=== PATIENT | male | born 1980 | race Caucasian/White ===

== ENCOUNTER 2016-08-19 14:54 | Emergency (ER) | payer OTHER ==
[~2016-08-19] VITALS: Ht 177.8 cm; Wt 117.9 kg
[~2016-08-19 14:54] MED LIST: AMLODIPINE BESY10 MG PO; ASPIRIN325 PO; BACTRIM DS TAB1 EACH PO; HUMULINR100; INVOKANA300 MG PO; KEFLEX500 MG PO; LISINOPRIL40 MG PO; NORCO 5-325 TA1 EACH PO; NOVOLIN R100 UNIT/3 SC; PRAVACHOL40 MG PO; PROTONIX40 M2 PO
[2016-08-19] MEDS ORDERED: CARVEDILOL12.5 MG PO (15:08)
[2016-08-19 16:00] VITALS: BP 170/94
[2016-08-19 16:18] LABS: ABSOLUTE NEUTROPHILS 7.5 thou/uL (1.4-8.2); BASOPHILS 0.8 % (0.0-2.0); EOSINOPHILS 1.6 % (0.0-3.0); HEMATOCRIT 37.1 % (42.0-52.0); HEMOGLOBIN 12.8 gm/dL (14.0-18.0); LYMPHOCYTES 13.4 % (24.0-44.0); MCH 28.2 pg (26.0-34.0); MCHC 34.6 g/dL (28.0-37.0); MCV 81.5 fL (80.0-100.0); MONOCYTES 7.2 % (1.0-8.0); PLATELET COUNT 221 thou/uL (150-400); RBC 4.55 mil/uL (4.50-6.00); RDW 14.8 % (10.5-14.5); WBC 9.7 thou/uL (4.0-11.0)
[2016-08-19 16:19] LABS: MANUAL DIFF NO
[2016-08-19] MEDS ORDERED: CLEOCIN HCL300 MG PO (16:50)
== END 2016-08-19 16:54 | disposition home or self-care (01) ==
LOC: ER 14:54
PROVIDERS: Nurse Practitioner
DX: L02.415 Cutaneous abscess of right lower limb (principal); E11.9 Type 2 diabetes mellitus without complications; I10 Essential (primary) hypertension

== ENCOUNTER 2017-02-18 10:18 | Emergency (ER) | payer OTHER ==
[~2017-02-18] VITALS: Ht 177.8 cm; Wt 117.9 kg
[~2017-02-18 10:18] MED LIST changes: +CARVEDILOL12.5 MG PO; +CLEOCIN HCL300 MG PO
[2017-02-18 10:51] LABS: ABSOLUTE NEUTROPHILS 7.1 thou/uL (1.4-8.2); BASOPHILS 0.9 % (0.0-2.0); EOSINOPHILS 2.4 % (0.0-3.0); HEMATOCRIT 35.6 % (42.0-52.0); HEMOGLOBIN 12.2 gm/dL (14.0-18.0); LYMPHOCYTES 13.7 % (24.0-44.0); MCH 28.7 pg (26.0-34.0); MCHC 34.3 g/dL (28.0-37.0); MCV 83.7 fL (80.0-100.0); MONOCYTES 7.4 % (1.0-8.0); PLATELET COUNT 224 thou/uL (150-400); POLYS 75.6 % (36.0-66.0); RBC 4.26 mil/uL (4.50-6.00); RDW 14.2 % (10.5-14.5); WBC 9.4 thou/uL (4.0-11.0)
[2017-02-18 11:06] LABS: MANUAL DIFF NO
[2017-02-18 11:07] LABS: CALCIUM 9.8 mg/dL (8.5-10.1); CREATININE 2.6 mg/dL (0.7-1.3); POTASSIUM 4.2 mmol/L (3.5-5.1)
[2017-02-18] MEDS ORDERED: AUGMENTIN 875-1 EACH PO (11:30)
[2017-02-18 11:51] VITALS: BP 144/81
== END 2017-02-18 11:51 | disposition home or self-care (01) ==
LOC: ER 10:18
PROVIDERS: Emergency Medicine
DX: S90.822D Blister (nonthermal), left foot, subsequent encounter (principal); I10 Essential (primary) hypertension; E78.00 Pure hypercholesterolemia, unspecified; E11.9 Type 2 diabetes mellitus without complications; X58.XXXD Exposure to other specified factors, subsequent encounter

== ENCOUNTER → 2017-09-09 | Outpatient (CLI) | payer OTHER ==
[~2017-09-09] MED LIST changes: +AUGMENTIN 875-1 EACH PO; +HYDRALAZINE 2525 MG PO; +HYDROCODON-ACE1 EAC7 PO; +JARDIANCE25 MG PO; +LANTUS100 UNIT/M SUBQ; +MUPIROCIN22 GM NASAL; +NOVOLOG100 UNIT/1 SUBQ; +ZYVOX600 MG PO
== END ==
LOC: HYPER 06:40
DX: T81.89XD Other complications of procedures, not elsewhere classified, subsequent encounter (principal); E11.40 Type 2 diabetes mellitus with diabetic neuropathy, unspecified; R60.0 Localized edema; I10 Essential (primary) hypertension; Z86.14 Personal history of Methicillin resistant Staphylococcus aureus infection; Z79.4 Long term (current) use of insulin; Y83.8 Other surgical procedures as the cause of abnormal reaction of the patient, or of later complication, without mention of misadventure at the time of the procedure